=== PATIENT | female | born 1985 | race Caucasian/White ===

== ENCOUNTER → 2022-04-07 22:40 | Observation (INO) | END | disposition home or self-care (01) | LOC: 1NENULAB | PROVIDERS: ADMIT Obstetrics & Gynecology; ATTEND Obstetrics & Gynecology ==

== ENCOUNTER 2022-05-20 17:32 | Observation (INO) | END 2022-05-20 19:08 | disposition home or self-care (01) | LOC: 1NENULAB | PROVIDERS: ADMIT Obstetrics & Gynecology; ATTEND Obstetrics & Gynecology ==

== ENCOUNTER 2022-06-30 09:57 | Inpatient (IN) ==
[2022-06-30] MEDS ORDERED: CeFAZolin 2,000 MG/120 ML BAG IVPB ONE (10:15)
[2022-06-30] MEDS ORDERED: Ringers Solution, Lactated 1,000 ML IVC ONE (10:15)
[2022-06-30] MEDS ORDERED: Ringers Solution, Lactated 1,000 ML IVC SCH ×3 (10:15→18:04)
[2022-06-30] MEDS ORDERED: Metoclopramide 10 MG/2 ML VIAL IVP ONE (10:15)
[2022-06-30] MEDS ORDERED: Oxytocin 30 UNIT/503 ML BAG IVC SCH ×2 (10:15→18:04)
[2022-06-30] MEDS ORDERED: Famotidine 20 MG/2 ML VIAL IVP ONE (10:15)
[2022-06-30] MEDS ORDERED: OXYTOCIN/RINGERS LACTATE 10 UNIT/166.6 ML BAG IVC ONE ×2 (10:15→18:04)
[2022-06-30] MEDS ORDERED: Flu Vac QV 22-23 (6MOS UP)/PF 0.5 ML SYRINGE IM ONE (10:36)
[2022-06-30] MEDS ORDERED: Lidocaine -MPF 2% 2 ML VIAL ONE (10:38)
[2022-06-30] MEDS ORDERED: Ringers Solution, Lactated 1,000 ML ONE (11:36)
[2022-06-30 11:47] LABS: Basophils # 0.1 K/mcL (0.0-0.2); Basophils % 0.7 %; Eosinophils # 0.1 K/mcL (0.0-0.6); Eosinophils % 0.8 %; Hemoglobin 14.8 g/dL (11.5-15.4); Immature Granulocytes % 1.1 % (0-4); Lymphocytes # 1.7 K/mcL (0.6-4.6); Lymphocytes % 18.4 %; Mean Corpuscular HGB Conc 33.6 g/dL (31.6-35.5); Mean Corpuscular Hemoglobin 29.8 pg (28.0-33.3); Mean Corpuscular Volume 88.7 fL (83.0-100.0); Mean Platelet Volume 11.5 fL (9.4-12.4); Monocytes # 0.5 K/mcL (0.0-1.3); Monocytes % 5.3 %; Neutrophils # 6.8 K/mcL (1.6-8.9); Platelet Count 241 K/mcL (140-400); Red Blood Count 4.96 M/mcL (3.82-4.97); Red Cell Distribution Width 13.3 % (11.5-14.5); Segmented Neutrophils % 73.7 %; White Blood Count 9.2 K/mcL (4.3-11.1)
[2022-06-30] MEDS ORDERED: Acetaminophen IV 1,000 MG/100 ML BAG IVPB ONE ×2 (12:07→18:06)
[2022-06-30] MEDS ORDERED: *HR* Morphine Sulfate/PF 10 MG/10 ML AMPUL ONE ×2 (12:11→18:24)
[2022-06-30] MEDS ORDERED: *HR* FentaNYL (PF) 100 MCG/2 ML VIAL ONE ×2 (12:11→19:13)
[2022-06-30] MEDS ORDERED: Ondansetron 4 MG/2 ML VIAL ONE ×2 (12:11→18:27)
[2022-06-30 13:03] LABS: Amphetamine Screen,Urine Negative ng/mL (Cutoff=1000); Barbiturate Screen,Urine Negative ng/mL (Cutoff=200); Benzodiazepines Screen,Urine Negative ng/mL (Cutoff=200); Cannabinoid Screen,Urine Negative ng/mL (Cutoff = 50); Cocaine Screen,Urine Negative ng/mL (Cutoff= 300); Opiate Screen,Urine Negative ng/mL (Cutoff=300); Phencyclidine Screen,Urine Negative ng/mL (Cutoff=25)
[2022-06-30] MEDS ORDERED: *HR* Oxytocin 10 UNIT/ML VIAL ONE (13:52)
[2022-06-30] MEDS ORDERED: Ketorolac 30 MG/ML VIAL ONE ×2 (14:46→19:48)
[2022-06-30] MEDS ORDERED: Metoclopramide 10 MG/2 ML VIAL IVP PRN ×2 (15:00→18:04)
[2022-06-30] MEDS ORDERED: *HR* OxyCODONE Immed Rel 5 MG TABLET PO PRN (15:00)
[2022-06-30] MEDS ORDERED: Ondansetron 4 MG/2 ML VIAL IVP PRN ×2 (15:00→18:04)
[2022-06-30] MEDS ORDERED: Naloxone 0.4 MG/ML INJ IVP PRN ×2 (15:00→18:04)
[2022-06-30] MEDS ORDERED: Simethicone 80 MG TAB.CHEW PO SCH (15:00)
[2022-06-30] MEDS ORDERED: Acetaminophen 325 MG TABLET PO SCH (15:00)
[2022-06-30] MEDS ORDERED: Ibuprofen 600 MG TABLET PO SCH (18:03)
[2022-06-30] MEDS ORDERED: Chloroprocaine 3%/PF 20 ML VIAL INFILT ONE (18:06)
[2022-06-30] MEDS ORDERED: dexmedeTOMIDine in 0.9 % NaCL 80 MCG/20 ML MLS ONE (18:21)
[2022-06-30] MEDS ORDERED: Ropivacaine/PF 0.2% 20 ML VIAL ONE (18:45)
[2022-06-30] MEDS: *HR* Enoxaparin 60 MG/0.6 ML SYRINGE SQ SCH (19:47)
[2022-06-30] MEDS: Simethicone 80 MG TAB.CHEW PO SCH (19:48)
[2022-06-30] MEDS: Acetaminophen 325 MG TABLET PO SCH (19:48)
[2022-06-30] MEDS ORDERED: CeFAZolin 2,000 MG/120 ML BAG IVPB SCH (20:00)
[2022-06-30] MEDS: *HR* OxyCODONE Immed Rel 5 MG TABLET PO PRN (20:50)
[2022-06-30] MEDS ORDERED: Ketorolac 30 MG/ML VIAL IVP SCH (21:00)
[2022-06-30] MEDS ORDERED: *HR* Enoxaparin 60 MG/0.6 ML SYRINGE SQ SCH (21:00)
[2022-06-30] MEDS ORDERED: Sennosides 8.6 MG TABLET PO SCH (21:00)
[2022-07-01] MEDS: *HR* OxyCODONE Immed Rel 5 MG TABLET PO PRN ×5 (01:22→20:27)
[2022-07-01] MEDS: Acetaminophen 325 MG TABLET PO SCH ×4 (05:29→20:28)
[2022-07-01] MEDS: *HR* Enoxaparin 60 MG/0.6 ML SYRINGE SQ SCH ×2 (08:47→20:28)
[2022-07-01] MEDS: Simethicone 80 MG TAB.CHEW PO SCH ×3 (08:47→20:27)
[2022-07-01] MEDS: Prenatal Vit/FA 1 EACH TABLET PO SCH (08:48)
[2022-07-01] MEDS ORDERED: Prenatal Vit/FA 1 EACH TABLET PO SCH (09:00)
[2022-07-01 09:34] LABS: Basophils # 0.1 K/mcL (0.0-0.2); Basophils % 0.5 %; Eosinophils # 0.1 K/mcL (0.0-0.6); Eosinophils % 1.4 %; Hematocrit 37.8 % (35.3-44.9); Immature Granulocytes % 1.1 % (0-4); Lymphocytes # 1.7 K/mcL (0.6-4.6); Lymphocytes % 18.4 %; Mean Corpuscular HGB Conc 34.7 g/dL (31.6-35.5); Mean Corpuscular Hemoglobin 30.3 pg (28.0-33.3); Mean Corpuscular Volume 87.5 fL (83.0-100.0); Mean Platelet Volume 11.4 fL (9.4-12.4); Monocytes # 0.6 K/mcL (0.0-1.3); Monocytes % 6.8 %; Neutrophils # 6.8 K/mcL (1.6-8.9); Platelet Count 192 K/mcL (140-400); Red Blood Count 4.32 M/mcL (3.82-4.97); Red Cell Distribution Width 13.5 % (11.5-14.5); Segmented Neutrophils % 71.8 %; White Blood Count 9.5 K/mcL (4.3-11.1)
[2022-07-01 09:36] LABS: Hemoglobin 13.1 g/dL (11.5-15.4)
[2022-07-01] MEDS: Ibuprofen 600 MG TABLET PO PRN (20:27)
[2022-07-01] MEDS ORDERED: Ibuprofen 600 MG TABLET PO SCH (21:00)
[2022-07-02] MEDS: Ibuprofen 600 MG TABLET PO PRN ×2 (03:41→13:05)
[2022-07-02] MEDS: Acetaminophen 325 MG TABLET PO SCH ×2 (03:42→08:41)
[2022-07-02] MEDS: *HR* OxyCODONE Immed Rel 5 MG TABLET PO PRN ×3 (03:42→13:53)
[2022-07-02 06:36] VITALS: BP 127/79; PULSE 78; TEMP 97.9; O2SAT 97
[2022-07-02] MEDS: *HR* Enoxaparin 60 MG/0.6 ML SYRINGE SQ SCH (08:42)
[2022-07-02] MEDS: Simethicone 80 MG TAB.CHEW PO SCH (08:44)
[2022-07-02] MEDS: Prenatal Vit/FA 1 EACH TABLET PO SCH (08:44)
== END 2022-07-02 14:14 | disposition home or self-care (01) | DRG 540 ==
LOC: SAMDAY 09:57 → 1NENULAB 09:58 → 1NENUOBS 17:14
PROVIDERS: ADMIT Student in an Organized Health Care Education/Training Program; ATTEND Student in an Organized Health Care Education/Training Program